=== PATIENT | female | born 1960 | race Caucasian/White ===

== ENCOUNTER 2018-08-31 12:04 | Emergency (ER) | payer MEDICARE, OTHER ==
[2018-08-31] MEDS: KETOROLAC 30 MG INJ IM (13:26)
[2018-08-31 13:53] LABS: TROPONIN-I < 0.012 ng/ml (0.000-0.120)
== END 2018-08-31 14:32 | disposition home or self-care (01) ==
LOC: E/R 12:04
DX: R07.89 Other chest pain (principal); I10 Essential (primary) hypertension
CPT/HCPCS: 36415; 71045; 84484; 93005; 96372; 99284-25